=== PATIENT | male | born 1955 | race Caucasian/White ===

== ENCOUNTER → 2022-06-25 16:13 | Outpatient (BNV) | payer MEDICARE, MEDICAID, SELFPAY | PROVIDERS: Visit Provider Internal Medicine Medical Oncology | DX: D75.1 Secondary polycythemia (principal) | CPT/HCPCS: 99204; 99213 ==

== ENCOUNTER 2022-07-03 13:07 | Outpatient (REF) | payer MEDICARE, MEDICAID, SELFPAY | END 2022-07-03 13:08 | disposition home or self-care (01) | LOC: HO.BBR 13:07 | PROVIDERS: PCP Internal Medicine; Visit Provider Internal Medicine Medical Oncology | DX: D75.1 Secondary polycythemia (principal) | CPT/HCPCS: 85018; 99195 ==

== ENCOUNTER 2022-07-17 12:53 | Outpatient (REF) | payer MEDICARE, MEDICAID, SELFPAY | END 2022-07-17 12:54 | disposition home or self-care (01) | LOC: HO.BBR 12:53 | PROVIDERS: Visit Provider Internal Medicine Medical Oncology | DX: D75.1 Secondary polycythemia (principal) | CPT/HCPCS: 85014; 85018; 99195 ==

== ENCOUNTER 2022-07-31 12:16 | Outpatient (REF) | payer MEDICARE, MEDICAID, SELFPAY | END 2022-07-31 12:17 | disposition home or self-care (01) | LOC: HO.BBR 12:16 | PROVIDERS: Visit Provider Internal Medicine Medical Oncology | DX: D75.1 Secondary polycythemia (principal) | CPT/HCPCS: 85014; 85018; 99195 ==

== ENCOUNTER 2022-08-14 12:53 | Outpatient (REF) | payer MEDICARE, MEDICAID, SELFPAY | END 2022-08-14 12:54 | disposition home or self-care (01) | LOC: HO.BBR 12:53 | PROVIDERS: Visit Provider Internal Medicine Medical Oncology | DX: D75.1 Secondary polycythemia (principal) | CPT/HCPCS: 85018; 99195 ==

== ENCOUNTER 2022-08-28 13:52 | Outpatient (REF) | payer MEDICARE, MEDICAID, SELFPAY | END 2022-08-28 13:53 | disposition home or self-care (01) | LOC: HO.BBR 13:52 | PROVIDERS: Visit Provider Internal Medicine Medical Oncology | DX: D75.1 Secondary polycythemia (principal) | CPT/HCPCS: 85014; 85018; 99195 ==

== ENCOUNTER 2022-09-11 13:05 | Outpatient (REF) | payer MEDICARE, MEDICAID, SELFPAY | END 2022-09-11 13:06 | disposition home or self-care (01) | LOC: HO.BBR 13:05 | PROVIDERS: PCP Internal Medicine; Visit Provider Internal Medicine Medical Oncology | DX: D75.1 Secondary polycythemia (principal) | CPT/HCPCS: 85014; 85018; 99195 ==

== ENCOUNTER 2022-09-25 13:46 | Outpatient (REF) | payer MEDICARE, MEDICAID, SELFPAY | END 2022-09-25 13:47 | disposition home or self-care (01) | LOC: HO.BBR 13:46 | PROVIDERS: Visit Provider Internal Medicine Medical Oncology | DX: D75.1 Secondary polycythemia (principal) | CPT/HCPCS: 85018 ==

== ENCOUNTER 2022-10-02 13:56 | Outpatient (REF) | payer MEDICARE, MEDICAID, SELFPAY ==
--- NOTE | ~2022-10-02 | CT_ITS ---
EXAMINATION: CT CHEST SCREENING CLINICAL INFORMATION: Current smoker. 53 pack year history. COMPARISON: None available. TECHNIQUE: Multidetector volumetric CT imaging of the chest is performed without contrast using low dose technique. Additional 2D coronal and sagittal reformatted images and axial 3D maximum intensity projection (MIP) images are generated on the CT workstation. This CT examination was performed using dose optimization techniques as appropriate, variously including the following: *Automated exposure control *Adjustment of mA and/or kV according to patient size (this includes techniques or standardized protocols for targeted exams where dose is matched to indication/reason for exam; i.e. extremities or head) *Use of iterative reconstruction technique DLP: 66 mGy-cm FINDINGS: LUNGS: Centrilobular and paraseptal emphysema. 3 x 5 mm peripheral or subpleural nodule along the minor fissure axial image 307 series 5. Probably represents a subpleural lymph node. 2 mm left lower lobe nodule axial image 356 series 5. Areas of scarring or subsegmental atelectasis at the lung bases. No endobronchial or endotracheal lesion. MEDIASTINUM: Upper normal-size mediastinal lymph nodes. Largest lymph node is a right precarinal lymph node measuring 1.3 cm in short axis. Normal heart size. No pericardial effusion. Normal caliber thoracic aorta. CORONARY ARTERY CALCIFICATION: Mild PLEURA: There is no pleural effusion. No pleural mass or thickening. AXILLA: No lymphadenopathy. UPPER ABDOMEN: Partially visualized IVC filter. Diverticulosis colon. OSSEOUS STRUCTURES: Degenerative changes of the spine. Postsurgical changes to the lower cervical spine. CT/CT lung screening IMPRESSION: Emphysema. Small pulmonary nodules. Subsegmental atelectasis or scarring at the lung bases. ASSESSMENT: Lung-RADS category 2: Benign RECOMMENDATION: Annual low-dose chest CT follow-up recommended.
[2022-10-02 14:29] LABS: MANUAL DIFF FLAG NO
[2022-10-02 15:25] LABS: Basophils Percent Auto 0.4 % (0-2); Eosinophils Absolute Auto 0.2 X10*3/uL (0.0-0.4); Hematocrit 47.9 % (42.0-52.0); Hemoglobin 13.5 g/dl (14.0-18.0); Imm Gran Abs Auto 0.03 X10*3/uL (0.00-0.03); Imm Gran Pct Auto 0.3 % (0.0-0.4); Lymphocytes Absolute Auto 1.9 X10*3/uL (1.2-4.9); Mean Corpuscular HGB Conc 28.2 g/dl (31.0-36.0); Mean Corpuscular Hemoglobin 24.3 pg (27.0-33.0); Mean Corpuscular Volume 86.2 fL (80.0-98.0); Mean Platelet Volume 11.2 fL (9.4-12.4); Monocytes Absolute Auto 0.7 X10*3/uL (0.1-1.2); Monocytes Percent Auto 6.2 % (2-11); Neutrophils Absolute Auto 7.9 x10*3/uL (2.0-8.3); Neutrophils Percent Auto 73.1 % (45-73); Platelet Count 239 X10*3/uL (160-400); Red Blood Count 5.56 X10*6/uL (4.60-5.80); Red Cell Distribution Width 19.2 % (11.0-16.0); White Blood Count 10.7 X10*3/uL (4.8-10.8)
[2022-10-02 17:06] LABS: Alanine Aminotransferase 9 U/L (0-40); Albumin Level 3.8 g/dL (3.5-5.0); Alkaline Phosphatase 94 U/L (39-117); Anion Gap 10 (12-20); Aspartate Amino Transferase 11 U/L (5-37); Bilirubin Total 0.7 mg/dL (0.0-1.0); Blood Urea Nitrogen 11 mg/dL (9-16); Calcium 9.7 mg/dL (8.4-10.2); Carbon Dioxide 32 mmol/L (22-29); Chloride 99 mmol/L (96-108); Estimated Glomerular Filt Rate > 60; Glucose Random 125 mg/dL (60-115); Sodium 137 mmol/L (135-145); Total Protein 6.8 g/dL (6.5-8.0)
[2022-10-02 17:20] LABS: Ferritin 11 ng/mL (20-250)
== END 2022-10-02 13:57 | disposition home or self-care (01) ==
LOC: HO.CT 13:56
PROVIDERS: Absent Provider Internal Medicine Medical Oncology; Visit Provider Physician Assistant Medical
DX: Z12.2 Encounter for screening for malignant neoplasm of respiratory organs (principal); F17.210 Nicotine dependence, cigarettes, uncomplicated; D75.1 Secondary polycythemia
CPT/HCPCS: 36415; 71271; 80053; 82728; 85025; G0296

== ENCOUNTER 2022-10-02 14:48 | Outpatient (AMB) | payer MEDICARE, MEDICAID, SELFPAY ==
--- NOTE | 2022-10-02 11:19 | MHC.OFFVIS ---
Intake Intake Visit Reasons: LDCT SD Allergies lisinopril Allergy (Mild, Verified 07/28/22 13:59) Unknown oxycodone [From Percocet] Allergy (Mild, Verified 07/28/22 13:59) Unknown HPI LDCT SD HPI Details Initial visit for this 67yo smoker with a 50PYH. Patient has been smoking since age 14 for 53 years at 1ppd. . Denies marijuana use. Denies second hand smoke exposure. Denies exposure to chemicals or substances like asbestos. . Denies known family history of lung cancer. Denies personal history of cancers. Denies chest CT in last year. . Denies recent travel outside the [place]. Denies recent respiratory illness or recent hospitalization for respiratory issues. Denies testing positive for COVID. Admits receiving COVID Vaccine. Brand:[] Location: [] Date: [] . Denies fever, chills, new/worsening cough, hemoptysis, hoarseness or dysphagia. Denies significant chest pain, significant dyspnea or unintentional weight loss. Patient Lung Cancer Screening Questionnaire reviewed with patient by provider. . Shared Decision Making Completed. Patient meets criteria. Discussed in detail with patient, the risk vs benefit of LDCT screening. Patient consents to proceed with scan. Discussed smoking cessation. [facility] Medical History (Updated 10/02/22 @ 11:20 by Ann Aragon PA-C) COPD (chronic obstructive pulmonary disease) Neuropathy Nicotine dependence, cigarettes, uncomplicated Family History Father Diabetes Mother Diabetes Mother No problems noted. Other Kidney failure Social History Household Members: None Patient Tobacco Use Status: Current everyday Tobacco user Tobacco use type: Cigarette service: No Current occupational status: retired Gender identity: Male Assessment & Plan Assessment & Plan (1) Nicotine dependence, cigarettes, uncomplicated: Comment: (current smoker, onset 14yo, 1ppd x 53yrs, 50pyh) Code(s): F17.210 - Nicotine dependence, cigarettes, uncomplicated Plan: - SDM visit completed today in office. - Patient meets criteria for LDCT for lung cancer screening purposes and is asymptomatic. - Smoking cessation counseling offered. Patients can always call [phone]. - Will arrange for a LDCT scan of the chest for screening purposes at [facility]. - Risks, benefits, and alternatives were discussed in detail and the patient agrees to proceed. - Risks discussed include but are not limited to: radiation exposure, anxiety during testing and while awaiting results, false negatives, false positives and possibility of additional intervention such as further imaging or surgical procedures for benign disease. - Benefits are obviously detection of lung cancer at an early stage which can lead to improved outcomes. - Discussed the importance of screening program compliance with adherence to yearly LDCT scan as scheduled - or sooner interval scans for personalized screening regimen. - Discussed follow up plan. Our office will send a letter discussing results and if needed set up phone call and office visit based on CT findings. - Patient educated on results categorization and the management decisions for suspicious findings potentially found on the screening LDCT scan. Any patient with a Lung RADS score of 3 or 4 will be reviewed by a multidisciplinary team at [facility] to form a plan of action in regards to scan findings. - If further work up is warranted for a suspicious lung finding this will be followed by the Lung Cancer Screening program in conjunction with the Thoracic Surgery Department at [facility]. - A copy of the office note and LDCT will be sent to the patient's PCP - as well as documentation on any associated further plans of care. - Incidental findings on LDCT are the PCP's responsibility. These findings are indicated with an S finding on the LDCT Assessment. A note discussing the findings will be sent to the PCP who is then responsible for further management. - All questions answered.? Plan OF NOTE FOR PCP: The USPTF recommends all men age 65-75yo who have ever smoked have a one-time Abdominal Ultrasound for AAA screening. Recommend if not done prior. Coding Level of Care Code Lung Cancer Screening G0296 Diagnoses Nicotine dependence, cigarettes, uncomplicated F17.210
--- NOTE | 2022-10-02 14:32 | MHC.OFFVIS ---
Intake Intake Visit Reasons: LDCT SD Allergies lisinopril Allergy (Mild, Verified 07/28/22 13:59) Unknown oxycodone [From Percocet] Allergy (Mild, Verified 07/28/22 13:59) Unknown HPI LDCT SD HPI Details Initial visit for this 67yo smoker with a 50PYH. Patient has been smoking since age 14 for 53 years at 1ppd. . Denies marijuana use. Denies second hand smoke exposure. Denies exposure to chemicals or substances like asbestos. . Denies known family history of lung cancer. Denies personal history of cancers. Denies chest CT in last year. . Denies recent travel outside the [place]. Denies recent respiratory illness or recent hospitalization for respiratory issues. Denies testing positive for COVID. Admits receiving COVID Vaccine. x 1. . Denies fever, chills, new/worsening cough, hemoptysis, hoarseness or dysphagia. Denies significant chest pain, significant dyspnea or unintentional weight loss. Patient Lung Cancer Screening Questionnaire reviewed with patient by provider. . Shared Decision Making Completed. Patient meets criteria. Discussed in detail with patient, the risk vs benefit of LDCT screening. Patient consents to proceed with scan. Discussed smoking cessation. [facility], [facility] Medical History (Updated 10/02/22 @ 14:34 by Ann Aragon PA-C) COPD (chronic obstructive pulmonary disease) Erythrocytosis Neuropathy Nicotine dependence, cigarettes, uncomplicated Surgical History (Updated 10/02/22 @ 14:55 by Ann Aragon PA-C) History of bilateral inguinal hernia repair History of cervical spinal surgery Family History Father Diabetes Mother Diabetes Mother No problems noted. Other Kidney failure Social History (Updated 10/02/22 @ 14:53 by Ann Aragon PA-C) Household Members: None Patient Tobacco Use Status: Current everyday Tobacco user Tobacco use type: Cigarette Cigarette Packs Per Day: 1 Years Smoked: (onset 14yo, 1ppd x 53yrs, 50pyh) service: No Current occupational status: retired Gender identity: Male Assessment & Plan Assessment & Plan (1) Nicotine dependence, cigarettes, uncomplicated: Comment: (current smoker, onset 14yo, 1ppd x 53yrs, 50pyh) Code(s): F17.210 - Nicotine dependence, cigarettes, uncomplicated Plan: - SDM visit completed today in office. - Patient meets criteria for LDCT for lung cancer screening purposes and is asymptomatic. - Smoking cessation counseling offered. Patients can always call [phone]. - Will arrange for a LDCT scan of the chest for screening purposes at [facility]. - Risks, benefits, and alternatives were discussed in detail and the patient agrees to proceed. - Risks discussed include but are not limited to: radiation exposure, anxiety during testing and while awaiting results, false negatives, false positives and possibility of additional intervention such as further imaging or surgical procedures for benign disease. - Benefits are obviously detection of lung cancer at an early stage which can lead to improved outcomes. - Discussed the importance of screening program compliance with adherence to yearly LDCT scan as scheduled - or sooner interval scans for personalized screening regimen. - Discussed follow up plan. Our office will send a letter discussing results and if needed set up phone call and office visit based on CT findings. - Patient educated on results categorization and the management decisions for suspicious findings potentially found on the screening LDCT scan. Any patient with a Lung RADS score of 3 or 4 will be reviewed by a multidisciplinary team at [facility] to form a plan of action in regards to scan findings. - If further work up is warranted for a suspicious lung finding this will be followed by the Lung Cancer Screening program in conjunction with the Thoracic Surgery Department at [facility]. - A copy of the office note and LDCT will be sent to the patient's PCP - as well as documentation on any associated further plans of care. - Incidental findings on LDCT are the PCP's responsibility. These findings are indicated with an S finding on the LDCT Assessment. A note discussing the findings will be sent to the PCP who is then responsible for further management. - All questions answered.? Coding Level of Care Code Lung Cancer Screening G0296 Diagnoses Nicotine dependence, cigarettes, uncomplicated F17.210
== END 2022-10-02 15:12 | disposition home or self-care (01) ==
LOC: HO.HMS 14:48
PROVIDERS: PCP Internal Medicine; Visit Provider Physician Assistant Medical
DX: F17.210 Nicotine dependence, cigarettes, uncomplicated (principal)
CPT/HCPCS: G0296

== ENCOUNTER 2022-10-08 12:50 | Outpatient (REF) | payer MEDICARE, MEDICAID, SELFPAY | END 2022-10-08 12:51 | disposition home or self-care (01) | LOC: HO.BBR 12:50 | PROVIDERS: PCP Internal Medicine; Visit Provider Internal Medicine Medical Oncology | DX: D75.1 Secondary polycythemia (principal) | CPT/HCPCS: 85018 ==